=== PATIENT | female | born 1945 | race African-American/Black ===

== ENCOUNTER 2017-01-18 14:15 | Emergency (ER) | payer OTHER ==
[~2017-01-18] VITALS: Ht 167.6 cm; Wt 99.8 kg
[2017-01-18 15:30] LABS: URINE BLOOD 3+ (Negative); URINE COLOR YELLOW; URINE GLUCOSE-RANDOM* NEGATIVE (Negative); URINE KETONES TRACE (Negative); URINE NITRITE NEGATIVE (Negative); URINE PROTEIN (DIPSTICK) 2+ (Negative); URINE SPECIFIC GRAVITY >= 1.030 (1.003-1.035)
[2017-01-18 15:33] LABS: URINE BILIRUBIN NEGATIVE (Negative)
[2017-01-18 15:36] LABS: CASTS None Seen /LPF (None Seen); CRYSTALS None Seen /LPF (None Seen); SQUAMOUS 0-3 Few /LPF (0-3); URINE RBC >20 Many /HPF (0-2); URINE WBC >25 Many /HPF (0-5)
[2017-01-18 16:21] LABS: ABSOLUTE NEUTROPHILS 2.7 thou/uL (1.4-8.2); BASOPHILS 1.9 % (0.0-2.0); EOSINOPHILS 3.1 % (0.0-3.0); HEMATOCRIT 36.4 % (37.0-47.0); HEMOGLOBIN 12.2 gm/dL (12.0-15.0); LYMPHOCYTES 40.3 % (24.0-44.0); MCHC 33.5 g/dL (28.0-37.0); MCV 86.7 fL (80.0-100.0); MONOCYTES 11.3 % (1.0-8.0); PLATELET COUNT 252 thou/uL (150-400); POLYS 43.4 % (36.0-66.0); RDW 14.7 % (10.5-14.5); WBC 6.1 thou/uL (4.0-11.0)
[2017-01-18 16:22] LABS: MANUAL DIFF NO
[2017-01-18 16:31] LABS: CALCIUM 9.2 mg/dL (8.5-10.1); CREATININE 1.2 mg/dL (0.6-1.0); POTASSIUM 4.3 mmol/L (3.5-5.1)
[2017-01-18] MEDS ORDERED: KEFLEX500 MG PO (16:40)
[2017-01-18 16:57] VITALS: BP 139/58
== END 2017-01-18 17:28 | disposition home or self-care (01) ==
LOC: ER 14:15
PROVIDERS: Nurse Practitioner Family
DX: N39.0 Urinary tract infection, site not specified (principal); R31.9 Hematuria, unspecified; E11.9 Type 2 diabetes mellitus without complications; I10 Essential (primary) hypertension; E78.00 Pure hypercholesterolemia, unspecified; Z88.0 Allergy status to penicillin; Z86.79 Personal history of other diseases of the circulatory system

== ENCOUNTER 2017-07-17 01:54 | Emergency (ER) | payer OTHER ==
[~2017-07-17] VITALS: Ht 162.6 cm; Wt 98.9 kg
[~2017-07-17 01:54] MED LIST: KEFLEX500 MG PO
[2017-07-17 02:17] LABS: ANION GAP 10 mmol/L (7-16); BUN 16 mg/dL (7-18); CALCIUM 9.7 mg/dL (8.5-10.1); CHLORIDE 106 mmol/L (98-107); CO2 26 mmol/L (21-32); CREATININE 1.1 mg/dL (0.6-1.0); GLUCOSE 260 mg/dL (74-106); POTASSIUM 3.6 mmol/L (3.5-5.1); SODIUM 142 mmol/L (136-145)
[2017-07-17 02:23] LABS: ALBUMIN 3.8 g/dL (3.4-5.0); DIRECT BILIRUBIN < 0.1 mg/dL (<0.1-0.3); SGOT 15 U/L (15-37); SGPT 23 U/L (30-65); TOTAL BILIRUBIN 0.3 mg/dL (<0.1-1.0); TOTAL PROTEIN 7.9 g/dL (6.4-8.2)
[2017-07-17 02:24] LABS: ABSOLUTE NEUTROPHILS 2.5 thou/uL (1.4-8.2); BASOPHILS 0.5 % (0.0-2.0); HEMATOCRIT 37.9 % (37.0-47.0); HEMOGLOBIN 12.3 gm/dL (12.0-15.0); LYMPHOCYTES 37.6 % (24.0-44.0); MCH 28.7 pg (26.0-34.0); MCHC 32.4 g/dL (28.0-37.0); MCV 88.4 fL (80.0-100.0); MONOCYTES 11.2 % (1.0-8.0); PLATELET COUNT 293 thou/uL (150-400); POLYS 45.7 % (36.0-66.0); RBC 4.29 mil/uL (4.20-5.00); RDW 14.1 % (10.5-14.5); WBC 5.5 thou/uL (4.0-11.0)
== END 2017-07-17 03:10 | disposition home or self-care (01) ==
LOC: ER 01:54
PROVIDERS: Emergency Medicine
DX: E11.9 Type 2 diabetes mellitus without complications (principal); I10 Essential (primary) hypertension; E78.00 Pure hypercholesterolemia, unspecified; Z88.0 Allergy status to penicillin

== ENCOUNTER 2019-02-19 16:50 | Inpatient (IN) | payer OTHER ==
[~2019-02-19] VITALS: Ht 162.6 cm; Wt 103.0 kg
[2019-02-19 16:50] VITALS: BP 169/76
[2019-02-19 17:13] LABS: ABSOLUTE NEUTROPHILS 3.8 thou/uL (1.4-8.2); BASOPHILS 0.8 % (0.0-2.0); EOSINOPHILS 3.4 % (0.0-3.0); HEMOGLOBIN 12.9 gm/dL (12.0-15.0); LYMPHOCYTES 28.1 % (24.0-44.0); MCH 27.9 pg (26.0-34.0); MCHC 33.1 g/dL (28.0-37.0); MCV 84.4 fL (80.0-100.0); MONOCYTES 13.4 % (1.0-8.0); PLATELET COUNT 304 thou/uL (150-400); POLYS 54.3 % (36.0-66.0); RBC 4.62 mil/uL (4.20-5.00); RDW 15.4 % (10.5-14.5); WBC 6.9 thou/uL (4.0-11.0)
[2019-02-19 17:22] LABS: CALCIUM 9.7 mg/dL (8.5-10.1); POTASSIUM 4.2 mmol/L (3.5-5.1)
[2019-02-19] MEDS ORDERED: TYLENOL EXTRA500 MG PO (18:08)
[2019-02-19] MEDS ORDERED: LIPITOR 20 MG T20 M1 PO (18:11)
[2019-02-19] MEDS ORDERED: ELIQUIS5 MG PO (18:11)
[2019-02-19] MEDS ORDERED: DULCOLAX5 MG PO (18:11)
[2019-02-19] MEDS ORDERED: ASPIR 8181 MG PO (18:11)
[2019-02-19] MEDS ORDERED: CARDIZEM CD240 MG PO (18:11)
[2019-02-19] MEDS ORDERED: CARVEDILOL3.125 MG PO (18:12)
[2019-02-19] MEDS ORDERED: DEPAKENE250 MG PO (18:12)
[2019-02-19] MEDS ORDERED: FLONASE 0.05%50 MCG NASAL (18:13)
[2019-02-19] MEDS ORDERED: NEURONTIN600 MG PO (18:15)
[2019-02-19 18:16] LABS: URINE BILIRUBIN NEGATIVE (Negative); URINE BLOOD 3+ (Negative); URINE CLARITY CLOUDY; URINE COLOR YELLOW; URINE GLUCOSE-RANDOM* 2+ (Negative); URINE KETONES NEGATIVE (Negative); URINE LEUKOCYTES-REFLEX TRACE (Negative); URINE NITRITE-REFLEX NEGATIVE (Negative); URINE PROTEIN (DIPSTICK) 1+ (Negative); URINE SPECIFIC GRAVITY >= 1.030 (1.005-1.035); URINE UROBILINOGEN 0.2 E.U./dl (0.2-1.0)
[2019-02-19] MEDS ORDERED: HUMALOG100 UNIT/1 SUBQ (18:16)
[2019-02-19] MEDS ORDERED: IPRAT-ALBUT 0.5-3 ML INH (18:17)
[2019-02-19] MEDS ORDERED: LANTUS100 UNIT/M SUBQ (18:18)
[2019-02-19] MEDS ORDERED: METFORMIN HCL500 MG PO (18:18)
[2019-02-19] MEDS ORDERED: COZAAR 25 MG TA25 M1 PO (18:18)
[2019-02-19] MEDS ORDERED: JANUVIA50 MG PO (18:18)
[2019-02-19] MEDS ORDERED: ANTIVERT25 MG PO (18:18)
[2019-02-19] MEDS ORDERED: ZANTAC 150MG T150 MG PO (18:19)
[2019-02-19] MEDS ORDERED: PENTOXIFYLLINE400 MG PO (18:19)
[2019-02-19] MEDS ORDERED: MICONAZOLE 11 EACH VAG (18:19)
[2019-02-19] MEDS ORDERED: OMEPRAZOLE 20 M20 M1 PO (18:19)
[2019-02-19] MEDS ORDERED: PROAIR HFA8.5 GM INH (18:19)
[2019-02-19] MEDS ORDERED: TUCKS1 EAC1 TOP (18:20)
[2019-02-19] MEDS ORDERED: TRAMADOL 50 MG50 MG PO (18:20)
[2019-02-19 18:24] LABS: BACTERIA-REFLEX 1-9 Few /HPF (None Seen); CRYSTALS None Seen /LPF (None Seen); SQUAMOUS None Seen /LPF (0-3); URINE RBC >20 Many /HPF (0-2); URINE WBC-REFLEX 0-5 Rare /HPF (0-5)
[2019-02-19 18:31] LABS: AMP/METHAMP Negative (Negative); BARBITURATES Negative (Negative); BENZODIAZEPINES Negative (Negative); COCAINE Negative (Negative); METHADONE Negative (Negative); OPIATES Negative (Negative); PCP Negative (Negative)
[2019-02-19 18:36] LABS: ALBUMIN 3.5 g/dL (3.4-5.0); DIRECT BILIRUBIN < 0.1 mg/dL (<0.1-0.3); SALICYLATE < 2.8 mg/dL (2.8-20.0); SGOT 21 U/L (15-37); SGPT 19 U/L (30-65); TOTAL BILIRUBIN 0.3 mg/dL (<0.1-1.0); TOTAL PROTEIN 8.2 g/dL (6.4-8.2)
[2019-02-19 20:12] VITALS: BP 179/68
[2019-02-19 21:23] VITALS: BP 158/93
[2019-02-20 09:36] VITALS: BP 158/100
[2019-02-20 21:19] VITALS: BP 132/61
[2019-02-21 21:26] VITALS: BP 147/67
[2019-02-22 00:25] VITALS: BP 147/67
[2019-02-22 08:45] VITALS: BP 151/69
[2019-02-22 20:04] VITALS: BP 144/61
[2019-02-23 00:01] VITALS: BP 144/61
[2019-02-23 07:30] VITALS: BP 154/74
[2019-02-23 14:55] VITALS: BP 154/74
[2019-02-23 19:51] VITALS: BP 150/64
[2019-02-24 09:17] VITALS: BP 168/87
[2019-02-24 21:02] VITALS: BP 127/54
[2019-02-25 08:14] VITALS: BP 172/88
[2019-02-25 21:42] VITALS: BP 150/62
[2019-02-26 09:08] VITALS: BP 158/99
[2019-02-26] MEDS ORDERED: ALBUTEROL2.5 MG/0.5 INH (09:23)
[2019-02-26] MEDS ORDERED: DEPAKOTE SPRIN125 MG PO (09:26)
[2019-02-26] MEDS ORDERED: MIRALAX17 GM PO (09:27)
[2019-02-26] MEDS ORDERED: PEPCID20 MG PO (09:28)
[2019-02-26] MEDS ORDERED: LANTUS100 UNIT/M SUBQ (09:29)
[2019-02-26] MEDS ORDERED: MICONAZOLE NITR45 GM VAG (09:32)
[2019-02-26 10:19] VITALS: BP 158/99
[2019-02-27 00:08] LABS: GLYCOHEMOGLOBIN (HGB A1C) 11.1 % (4.8-5.6)
--- NOTE | 2019-02-27 13:19 | HC ---
[facility] [place] [address] CONSULTATION Name: ISAAC CASTRO Room #: 526A-A [facility] IN M.R.#: [id number] Admission: 02/19/19 Attend Phys: Yoni Mcdaniels DO Discharge: 02/26/19 Date of : 41 Report #: [id number] THIS REPORT FOR: //name// CC: Yoni Mcdaniels Vincedavid Bond DATE OF SERVICE: 02/26/2019 CONSULTING PHYSICIANS: Dr. Mau Curry and Dr. Yoni Mcdaniels. REASON FOR CONSULTATION: Uncontrolled type 2 diabetes mellitus. HISTORY OF PRESENT ILLNESS: This is a 74-year-old female patient whose medical background is significant for uncontrolled type 2 diabetes mellitus. The patient was not able to provide a great detail about her most recent antidiabetic regimen, but in the hospital during the past several days, she has received Lantus 40 units at night in addition to coverage with Humalog insulin for meals; however, still with uncontrolled hyperglycemia with glucose levels running in the 200-300 mg/dL range and without documentation of hypoglycemia. The patient does not believe that she has had major issues in the past with kidney disease, coronary artery disease, strokes. However, she is legally blind and attributes this to diabetes mellitus. Additionally, her background is noted for hypertension, possible atrial fibrillation. REVIEW OF SYSTEMS: CONSTITUTIONAL: No complaints of fatigue, tiredness, fever or chills. PULMONARY: Occasional shortness of breath, but no cough or hemoptysis. CARDIAC: Negative for chest pain, palpitations, syncope or presyncope. GI: Negative for abdominal pain, nausea, vomiting or changes in bowel movement frequency. NEUROLOGY: Occasional lightheadedness, but not loss of consciousness or seizures. SKIN: No rash, itching or bruising. MUSCULOSKELETAL: Occasional myalgia, muscle aches, joint aches. The patient is immobile. The remaining of her review of system is noncontributory. PAST MEDICAL HISTORY: 1. Type 2 diabetes mellitus as noted above. 2. Diabetic retinopathy. Legally blind. 3. Hypertension. 4. Atrial fibrillation. 5. Obesity. 6. Anxiety disorder. [facility] [address] [place] [address] CONSULTATION Name: LIZZIE CASTROH Room #: 526A-A [facility] IN M.R.#: [id number] Admission: 02/19/19 Attend Phys: Yoni Mcdaniels DO Discharge: 02/26/19 Date of : 41 Report #: [id number] ACTIVE MEDICATIONS: Albuterol p.r.n., Lantus insulin 40 units at bedtime, 10 units in the morning have been added just recently, aspirin 81 mg daily, atorvastatin 40 mg daily, diltiazem 360 mg daily, famotidine 20 mg twice a day, losartan 100 mg daily, metformin 500 mg daily, Humalog 25 units before meals, pantoprazole 20 mg daily, olanzapine 5 mg daily, trazodone 25 mg, meclizine 25 mg, tramadol. ALLERGIES: THE PATIENT CLAIMS AN ALLERGY TO PENICILLIN. PAST SURGICAL HISTORY: Unremarkable. FAMILY HISTORY: Noncontributory. SOCIAL HISTORY: The patient lives at [place]. Denies use of tobacco or alcohol. PHYSICAL EXAMINATION: GENERAL: Pleasant elderly -[place] female patient who is in a wheelchair. She is appropriate in answering my questions fully and is cheerful and interactive. VITAL SIGNS: Temperature 98 degrees, heart rate 79 beats per minute, respirations 18 per minute, blood pressure 150/62 mmHg, O2 sat 97%, respiratory rate 18 per minute. HEENT: The patient wears thick dark glasses. She is legally blind as noted previously. NECK: Supple. No thyromegaly. No tenderness. Full range of motion. LUNGS: Chest is clear to auscultation with distant breath sounds, but diminished breath sounds over both bases, no wheezes, but has scattered rhonchi. HEART: Regular rate and rhythm without murmurs or gallops. ABDOMEN: Soft and lax. No tenderness or organomegaly. She has active bowel sounds. EXTREMITIES: Lower extremity exam, trace ankle edema bilaterally with good pedal pulses, but no skin breaks or ulcerations. NEUROLOGIC: Awake, alert and oriented x 3. No focal motor deficits, but it is not feasible to perform a full neurological examination given her wheelchair ridden state. PSYCH: Cheerful affect, interactive, answering my questions appropriately. SKIN: No rash or bruising. LABORATORY DATA: Blood glucose levels as noted above have mostly ranged in the 230-330 mg/dL. Otherwise, sodium 134, potassium 4.2, chloride 100, CO2 of 24, anion gap 10, BUN 16, creatinine 1.0. Total bilirubin 0.3, ALT 19, alkaline phosphatase 126, total protein 8.2, albumin 3.5, GFR 65. Tox screen was negative. Hemoglobin 12.9, white blood count 6.9, hematocrit 39, platelets 304. She had a UA that is noted for hematuria and bacteria of 1-9. [facility] [address] [place] [address] CONSULTATION Name: ISAAC CASTRO Room #: 526A-A [facility] IN [place]elaida.#: [id number] Admission: 02/19/19 Attend Phys: Yoni BerthaJoelle Freireomero Discharge: 02/26/19 Date of : 41 Report #: [id number] ASSESSMENT AND PLAN: Type 2 diabetes mellitus, uncontrolled. The patient gives an outlook of uncontrolled type 2 diabetes mellitus. She has had the unfortunate end-organ complication of diabetic retinopathy, culminating in blindness. The patient strikes me as having a poorly controlled baseline to begin with. I will try to get a better assessment of this with a hemoglobin A1c. In the immediate setting, my goal for the patient's control is 100-180 mg/dL. As soon as this was discussed with her, she was a bit anxious about feeling hypoglycemic and said that she is used to being 300 mg/dL range. This adds to the belief that she had probably intentionally maintained hyperglycemia to avoid the symptoms of perceived hypoglycemia. I counseled the patient about the importance of targeting a better control and she was willing to cooperate towards that end as long as we do so gradually. That said, I will move towards a regimen of Lantus insulin given as 35 units twice a day as well as Humalog insulin given as 32 units before meals and also we will move to maximizing her metformin therapy to 1000 mg twice a day. As we do so, I am hoping to gradually get the patient in the target range without invoking much in terms of hypoglycemia symptoms. Hypertension, the patient is a known hypertensive, she has fluctuating blood pressure control levels here, but overall seems to be under reasonable control over the past few days. I will maintain the current regimen. I will establish hypothyroidism, patient's type 2 diabetes mellitus and likely to have hypothyroidism. I will establish a baseline thyroid function study with a TSH level. I greatly appreciate this consultation and the opportunity to participate in the care of this pleasant lady. <ELECTRONICALLY SIGNED> By: Adis Mejia MD 02/27/19 1319 [id number] Adis Mejia MD /nt
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
== END 2019-02-26 11:00 | DRG 884 ==
LOC: ER 16:50 → SBH 19:35 → EROBS 19:35 → SBH 20:15
PROVIDERS: Emergency Medicine; Internal Medicine; Physician Assistant; ADMIT Psychiatry & Neurology Psychiatry
DX: F01.50 Vascular dementia, unspecified severity, without behavioral disturbance, psychotic disturbance, mood disturbance, and anxiety (principal); F41.9 Anxiety disorder, unspecified; I10 Essential (primary) hypertension; E78.00 Pure hypercholesterolemia, unspecified; E11.319 Type 2 diabetes mellitus with unspecified diabetic retinopathy without macular edema; E66.9 Obesity, unspecified; H54.8 Legal blindness, as defined in USA; E11.65 Type 2 diabetes mellitus with hyperglycemia; Z79.82 Long term (current) use of aspirin; Z79.899 Other long term (current) drug therapy; Z68.39 Body mass index [BMI] 39.0-39.9, adult; Z88.1 Allergy status to other antibiotic agents; Z88.8 Allergy status to other drugs, medicaments and biological substances; Z88.0 Allergy status to penicillin
CPT/HCPCS: 10880